=== PATIENT | male | born 1945 | race Asian ===

== ENCOUNTER 2017-09-18 08:45 | Inpatient (IN) | payer MEDICARE, MEDICAID ==
[~2017-09-18] VITALS: Ht 165.1 cm; Wt 74.2 kg
[~2017-09-18 08:45] MED LIST: ASPI81 PO; ATOR20TA65 PO; CARV6 PO; DOCU250C14 PO; FOLI1CAP2 PO; GLIP5 PO; PANT40TA25 PO; SENN-187 PO; TAMS-1 PO; VITAD1000 PO
[2017-09-18] MEDS ORDERED: DEXTROSE 50%-WATER 25 GM/50 ML SYRINGE IVP ONE ×2 (08:52→09:15)
[2017-09-18 09:14] LABS: BASOPHILS # (AUTO) 0.04 K/uL (0.00-0.20); BASOPHILS % (AUTO) 0.3 % (0.0-2.0); EOSINOPHILS # (AUTO) 0.08 K/uL (0.00-0.70); EOSINOPHILS % (AUTO) 0.69 % (1.0-6.0); HEMATOCRIT 40.9 % (41-53); HEMOGLOBIN 13.5 g/dL (13.5-17.5); LYMPHOCYTES # (AUTO) 0.8 K/uL (1.0-4.8); LYMPHOCYTES % (AUTO) 7.5 % (22.0-44.0); MEAN CORPUSCULAR HGB CONC 32.9 G/dL (31.0-37.0); MEAN CORPUSCULAR VOLUME 97 fL (80-100); MONOCYTES # (AUTO) 0.6 K/uL (0.1-1.0); MONOCYTES % (AUTO) 4.9 % (2.0-9.0); NEUTROPHILS # (AUTO) 9.6 K/uL (1.8-7.7); NEUTROPHILS % (AUTO) 86.6 % (40.0-70.0); PLATELET COUNT (AUTO) 222 K/uL (150-450); RED CELL DISTRIBUTION WIDTH 13.2 % (11.5-14.5); WHITE BLOOD COUNT (AUTO) 11.1 K/uL (4.5-11.0)
[2017-09-18 09:26] LABS: ANION GAP 10 mmol/L (8-16); CALCIUM, TOTAL 9.2 mg/dL (8.8-10.5); CARBON DIOXIDE 27 mmol/L (22-29); CHLORIDE 105 mmol/L (98-107); CREATININE 1.61 mg/dL (0.60-1.30); GLOMERULAR FILTR. RATE CALC 43 mL/min (>60); POTASSIUM 4.5 mmol/L (3.5-5.1); SODIUM SERUM 142 mmol/L (136-145); UREA NITROGEN, BLOOD 28 mg/dL (7-18)
[2017-09-18 09:27] LABS: GLUCOSE,POINT OF CARE 177 MG/DL (70-110)
[2017-09-18] MEDS ORDERED: SODIUM CHLORIDE 0.9% 1,000 ML IV ONE (09:30)
[2017-09-18 09:32] LABS: ALANINE AMINOTRANSFERASE 36 U/L (12-78); ALBUMIN 4.5 g/dL (3.4-5.0); ASPARTATE AMINOTRANSFERASE 26 U/L (15-37); BILIRUBIN,TOTAL 0.3 mg/dL (0.1-1.0)
[2017-09-18] MEDS ORDERED: MAGNESIUM HYDROXIDE SUSPENSION 30 ML UDCUP PO PRN (10:15)
[2017-09-18] MEDS ORDERED: DEXTROSE 5%-0.45% SODIUM CHL 1,000 ML IV ONE (10:15)
[2017-09-18] MEDS ORDERED: ACETAMINOPHEN 325 MG TABLET PO PRN ×2 (10:15→10:30)
[2017-09-18] MEDS ORDERED: DEXTROSE 50%-WATER 25 GM/50 ML SYRINGE IVP PRN (10:15)
[2017-09-18] MEDS ORDERED: ONDANSETRON HCL 4 MG/2 ML VIAL IVP PRN (10:30)
[2017-09-18] MEDS ORDERED: 0.9% SODIUM CHLORIDE 10 ML SYRINGE IVP PRN (10:30)
[2017-09-18 10:32] LABS: GLUCOSE,POINT OF CARE 168 MG/DL (70-110)
[2017-09-18 11:47] VITALS: BP 149/89
[2017-09-18 14:52] LABS: GLUCOSE,POINT OF CARE 144 MG/DL (70-110)
[2017-09-18 15:54] VITALS: BP 153/85
[2017-09-18] MEDS: HEPARIN SODIUM,PORCINE 5,000 UNITS/ML VIAL SQ SCH (16:41)
[2017-09-18 17:42] LABS: GLUCOSE,POINT OF CARE 101 MG/DL (70-110)
[2017-09-18 19:46] VITALS: BP 148/81
[2017-09-18] MEDS: CARVEDILOL 6.25 MG TABLET PO SCH (20:41)
[2017-09-18] MEDS: DOCUSATE SODIUM 100 MG CAPSULE PO SCH (20:41)
[2017-09-18] MEDS: INSULIN ASPART 100 UNITS/ML SQ PRN (21:32)
[2017-09-18 22:37] LABS: GLUCOSE COMMENT 1 Juice/Food/D50 Given; GLUCOSE,POINT OF CARE 277 MG/DL (70-110)
[2017-09-19] MEDS: HEPARIN SODIUM,PORCINE 5,000 UNITS/ML VIAL SQ SCH ×4 (00:02→23:27)
[2017-09-19 00:12] VITALS: BP 132/84
[2017-09-19 04:57] VITALS: BP 155/85
[2017-09-19] MEDS: INSULIN ASPART 100 UNITS/ML SQ PRN ×4 (05:21→20:51)
[2017-09-19 05:48] LABS: GLUCOSE COMMENT 1 Juice/Food/D50 Given; GLUCOSE,POINT OF CARE 231 MG/DL (70-110)
[2017-09-19 07:42] VITALS: BP 158/96
[2017-09-19] MEDS: DOCUSATE SODIUM 100 MG CAPSULE PO SCH ×2 (08:22→20:12)
[2017-09-19] MEDS: PANTOPRAZOLE SODIUM 40 MG DR TABLET PO SCH (08:23)
[2017-09-19] MEDS: CARVEDILOL 6.25 MG TABLET PO SCH ×2 (08:23→20:12)
[2017-09-19] MEDS ORDERED: IRBE75TA10 PO (09:07)
[2017-09-19] MEDS ORDERED: METF10002 PO (09:07)
[2017-09-19] MEDS ORDERED: GlipiZIDE 5 MG TABLET PO SCH (10:45)
[2017-09-19 11:42] VITALS: BP 128/76
[2017-09-19 12:17] LABS: GLUCOSE COMMENT 1 Received Meds; GLUCOSE,POINT OF CARE 221 MG/DL (70-110)
[2017-09-19 16:04] LABS: APPEARANCE,URINE CLEAR (CLEAR); GLUCOSE, URINE (UA) >=1000 mg/dL (NEGATIVE); KETONES,URINE NEGATIVE (NEGATIVE); LEUKOCYTE ESTERASE ,URINE NEGATIVE (NEGATIVE); OCCULT BLOOD,URINE NEGATIVE (NEGATIVE); PROTEIN,URINE NEGATIVE (NEGATIVE)
[2017-09-19 16:06] LABS: ADD UA MICROSCOPIC YES
[2017-09-19 16:14] LABS: SQUAMOUS EPITHELIAL CELL,UR Rare /LPF (None Seen)
[2017-09-19 16:16] LABS: RBC,URINE 0-2 /HPF (0-2); WBC,URINE 0-2 /HPF (0-5)
[2017-09-19 16:27] VITALS: BP 135/82
[2017-09-19 18:38] LABS: GLUCOSE,POINT OF CARE 234 MG/DL (70-110)
[2017-09-19 19:30] VITALS: BP 139/78
[2017-09-20 00:15] VITALS: BP 124/76
[2017-09-20 04:25] VITALS: BP 137/69
[2017-09-20 05:23] LABS: GLUCOSE COMMENT 1 Received Meds; GLUCOSE,POINT OF CARE 184 MG/DL (70-110)
[2017-09-20 05:57] LABS: BASOPHILS % (AUTO) 0.2 % (0.0-2.0); EOSINOPHILS % (AUTO) 3.2 % (1.0-6.0); HEMATOCRIT 35.4 % (41-53); HEMOGLOBIN 11.9 g/dL (13.5-17.5); LYMPHOCYTES % (AUTO) 14.1 % (22.0-44.0); MEAN CORPUSCULAR HEMOGLOBIN 32.9 pg (26.0-34.0); MEAN CORPUSCULAR HGB CONC 33.6 G/dL (31.0-37.0); MEAN CORPUSCULAR VOLUME 98 fL (80-100); MONOCYTES # (AUTO) 0.5 K/uL (0.1-1.0); MONOCYTES % (AUTO) 6.5 % (2.0-9.0); NEUTROPHILS # (AUTO) 5.6 K/uL (1.8-7.7); PLATELET COUNT (AUTO) 222 K/uL (150-450); RED BLOOD CELL COUNT(AUTO) 3.62 MIL/uL (4.50-5.90); RED CELL DISTRIBUTION WIDTH 13.2 % (11.5-14.5); WHITE BLOOD COUNT (AUTO) 7.4 K/uL (4.5-11.0)
[2017-09-20] MEDS: INSULIN ASPART 100 UNITS/ML SQ PRN ×2 (06:11→11:48)
[2017-09-20 06:15] LABS: CREATININE 1.77 mg/dL (0.60-1.30)
[2017-09-20 06:16] LABS: CALCIUM, TOTAL 8.5 mg/dL (8.8-10.5)
[2017-09-20 06:36] LABS: HEMOGLOBIN A1C 7.2 % (4.5-6.2)
[2017-09-20 07:48] VITALS: BP 111/76
[2017-09-20] MEDS: HEPARIN SODIUM,PORCINE 5,000 UNITS/ML VIAL SQ SCH (08:00)
[2017-09-20] MEDS: CARVEDILOL 6.25 MG TABLET PO SCH (09:00)
[2017-09-20] MEDS: DOCUSATE SODIUM 100 MG CAPSULE PO SCH (09:00)
[2017-09-20] MEDS: PANTOPRAZOLE SODIUM 40 MG DR TABLET PO SCH (09:00)
[2017-09-20] MEDS ORDERED: GLIP2.5ER PO (10:01)
[2017-09-20 11:40] VITALS: BP 123/82
[2017-09-20 12:48] LABS: GLUCOSE COMMENT 1 Received Meds; GLUCOSE,POINT OF CARE 218 MG/DL (70-110)
[2017-09-20] MEDS ORDERED: INFLUENZA VIRUS VACCINE QVS 2017-18 (3YR+)/PF 60 MCG/0.5 ML SYRINGE IM ONE (13:15)
[2017-09-20 20:03] LABS: GLUCOSE COMMENT 1 Received Meds; GLUCOSE,POINT OF CARE 326 MG/DL (70-110)
== END 2017-09-20 15:10 | disposition home or self-care (01) | DRG 639 ==
LOC: EMS 08:47 → 6N 10:11
PROVIDERS: ADMIT Internal Medicine; ATTEND Internal Medicine
DX: E11.65 Type 2 diabetes mellitus with hyperglycemia (principal); E11.649 Type 2 diabetes mellitus with hypoglycemia without coma; E11.22 Type 2 diabetes mellitus with diabetic chronic kidney disease; I12.9 Hypertensive chronic kidney disease with stage 1 through stage 4 chronic kidney disease, or unspecified chronic kidney disease; N18.3 Chronic kidney disease, stage 3 (moderate); F79 Unspecified intellectual disabilities; Z79.899 Other long term (current) drug therapy; Z79.82 Long term (current) use of aspirin; Z83.49 Family history of other endocrine, nutritional and metabolic diseases; Z82.49 Family history of ischemic heart disease and other diseases of the circulatory system; Z82.3 Family history of stroke; Z83.3 Family history of diabetes mellitus; Z82.5 Family history of asthma and other chronic lower respiratory diseases; Z83.6 Family history of other diseases of the respiratory system; Z81.0 Family history of intellectual disabilities; Z84.89 Family history of other specified conditions; Z80.3 Family history of malignant neoplasm of breast
CPT/HCPCS: 82948; 82962; 83036; 90471; 96361; 96374; 99285; G0480; J1644; J7030

== ENCOUNTER 2017-11-16 17:23 | Inpatient (IN) | payer MEDICARE, MEDICAID ==
[~2017-11-16] VITALS: Ht 165.1 cm; Wt 66.7 kg
[~2017-11-16 17:23] MED LIST changes: +GLIP2.5ER PO; -GLIP5 PO
[2017-11-16] MEDS ORDERED: IRBE150T51 PO (17:28)
[2017-11-16] MEDS ORDERED: FOLI0.8T22 PO (17:28)
[2017-11-16] MEDS ORDERED: SODIUM CHLORIDE 0.9% 1,000 ML IV ONE (17:30)
[2017-11-16] MEDS ORDERED: IPRATROPIUM BROMIDE 0.5 MG/2.5 ML NEB SOLUTION NEB ONE ×2 (17:30→17:45)
[2017-11-16] MEDS ORDERED: MethylPREDNISolone SOD SUCC 125 MG/2 ML VIAL IVP ONE (17:30)
[2017-11-16] MEDS ORDERED: 0.9% SODIUM CHLORIDE 10 ML SYRINGE IVP PRN ×2 (17:30→19:45)
[2017-11-16] MEDS ORDERED: ACETAMINOPHEN 650 MG/ISO-OSM 65 ML IV ONE (17:30)
[2017-11-16] MEDS ORDERED: ALBUTEROL SULFATE 5 MG/ML 20 ML NEB SOLN [BULK] NEB ONE (17:30)
[2017-11-16] MEDS ORDERED: GLIP5 PO (17:35)
[2017-11-16] MEDS ORDERED: LEVALBUTEROL HCL 1.25 MG/0.5 ML NEB SOLUTION NEB ONE (17:36)
[2017-11-16 17:38] LABS: GLUCOSE,POINT OF CARE 192 MG/DL (70-110)
[2017-11-16] MEDS ORDERED: 0.9% SODIUM CHLORIDE 15 ML NEB SOLUTION NEB ONE (17:39)
[2017-11-16 17:49] LABS: BASOPHILS % (AUTO) 0.1 % (0.0-2.0); EOSINOPHILS % (AUTO) 0.9 % (1.0-6.0); HEMOGLOBIN 12.1 g/dL (13.5-17.5); LYMPHOCYTES # (AUTO) 1.1 K/uL (1.0-4.8); LYMPHOCYTES % (AUTO) 7.1 % (22.0-44.0); MEAN CORPUSCULAR HEMOGLOBIN 32.2 pg (26.0-34.0); MEAN CORPUSCULAR HGB CONC 33.6 G/dL (31.0-37.0); MEAN CORPUSCULAR VOLUME 96 fL (80-100); MONOCYTES # (AUTO) 0.5 K/uL (0.1-1.0); MONOCYTES % (AUTO) 3.6 % (2.0-9.0); NEUTROPHILS # (AUTO) 13.2 K/uL (1.8-7.7); NEUTROPHILS % (AUTO) 88.3 % (40.0-70.0); PLATELET COUNT (AUTO) 244 K/uL (150-450); RED BLOOD CELL COUNT(AUTO) 3.76 MIL/uL (4.50-5.90); RED CELL DISTRIBUTION WIDTH 12.9 % (11.5-14.5); WHITE BLOOD COUNT (AUTO) 14.9 K/uL (4.5-11.0)
[2017-11-16 18:18] LABS: ADD UA MICROSCOPIC YES; APPEARANCE,URINE CLEAR (CLEAR); GLUCOSE, URINE (UA) 250 mg/dL (NEGATIVE); KETONES,URINE NEGATIVE (NEGATIVE); LEUKOCYTE ESTERASE ,URINE NEGATIVE (NEGATIVE); OCCULT BLOOD,URINE TRACE (NEGATIVE); PH,URINE 5.5 (5.0-8.0); PROTEIN,URINE SEE CONFIRM (NEGATIVE)
[2017-11-16 18:38] LABS: ANION GAP 5 mmol/L (8-16); CALCIUM, TOTAL 8.3 mg/dL (8.8-10.5); CARBON DIOXIDE 31 mmol/L (22-29); CHLORIDE 102 mmol/L (98-107); CREATININE 1.71 mg/dL (0.60-1.30); GLOMERULAR FILTR. RATE CALC 40 mL/min (>60); POTASSIUM 5.1 mmol/L (3.5-5.1); SODIUM SERUM 138 mmol/L (136-145); UREA NITROGEN, BLOOD 25 mg/dL (7-18)
[2017-11-16 18:41] LABS: INFLUENZA TYPE B NEGATIVE FOR TYPE B (NEGATIVE)
[2017-11-16 18:41] LABS: SQUAMOUS EPITHELIAL CELL,UR Rare /LPF (None Seen); SULFOSALICYLIC ACID,URINE 2+ (Negative)
[2017-11-16 18:43] LABS: LACTIC ACID 1.3 mmol/L (0.4-2.0)
[2017-11-16 19:04] LABS: ALANINE AMINOTRANSFERASE 27 U/L (12-78); ALBUMIN 3.9 g/dL (3.4-5.0); ASPARTATE AMINOTRANSFERASE 26 U/L (15-37); BILIRUBIN,TOTAL 0.3 mg/dL (0.1-1.0); CREATINE KINASE MB 1.9 ng/mL (0-5); CREATINE KINASE, TOTAL 100 U/L (39-308); TOTAL PROTEIN, SERUM 6.9 g/dL (6.4-8.2)
[2017-11-16 19:16] LABS: PROCALCITONIN (PCT) 0.05 ng/mL (<0.50)
[2017-11-16] MEDS ORDERED: OSELTAMIVIR PHOSPHATE 75 MG CAPSULE PO ONE (19:30)
[2017-11-16] MEDS ORDERED: PIPERACILLIN/TAZO 3.375 GM/D5W 50 ML IV ONE (19:30)
[2017-11-16] MEDS ORDERED: ACETAMINOPHEN 325 MG TABLET PO PRN ×2 (19:45→22:00)
[2017-11-16] MEDS ORDERED: ONDANSETRON HCL 4 MG/2 ML VIAL IVP PRN ×2 (19:45→22:00)
[2017-11-16] MEDS ORDERED: IPRATROPIUM BROMIDE 0.5 MG/2.5 ML NEB SOLUTION NEB SCH (20:00)
[2017-11-16] MEDS ORDERED: ALBUTEROL SULFATE 2.5 MG/0.5 ML NEB SOLUTION NEB SCH (20:00)
[2017-11-16 20:25] LABS: ABG A-A DIFF O2 61.6 mmHg (10-20.0); ABG BASE EXCESS -1.6 mmol/L (-2.0-3.0); ABG HCO3 22.4 mmol/L (22.0-26.0); ABG OXYHEMOGLOBIN 88.6 % (94.0-100.0); ABG PCO2 62 mmHg (35-45); ALLEN TEST, BLOOD GAS POS; TEMPERATURE, FAHRENHEIT, BG 99.9 FAHREN (96.0-98.6)
[2017-11-16] MEDS ORDERED: ENOXAPARIN SODIUM 80 MG/0.8 ML PF SYRINGE SQ SCH (20:30)
[2017-11-16 21:28] VITALS: BP 115/77
[2017-11-16] MEDS ORDERED: ALBUTEROL SULFATE 2.5 MG/0.5 ML NEB SOLUTION NEB PRN (22:00)
[2017-11-16] MEDS ORDERED: MORPHINE SULFATE 2 MG/ML SYRINGE IVP PRN (22:00)
[2017-11-16] MEDS ORDERED: BISACODYL 10 MG RECTAL RECTAL SUPPOSITORY PR PRN (22:00)
[2017-11-16] MEDS ORDERED: ZOLPIDEM TARTRATE 5 MG TABLET PO PRN (22:00)
[2017-11-16] MEDS ORDERED: IPRATROPIUM BROMIDE 0.5 MG/2.5 ML NEB SOLUTION NEB PRN (22:00)
[2017-11-16] MEDS ORDERED: INSULIN ASPART 100 UNITS/ML SQ PRN (22:00)
[2017-11-16] MEDS ORDERED: OxyCODONE HCL/ACETAMINOPHEN 5-325 MG TABLET PO PRN (22:00)
[2017-11-16] MEDS ORDERED: MAGNESIUM HYDROXIDE SUSPENSION 30 ML UDCUP PO PRN (22:00)
[2017-11-16] MEDS: SODIUM CHLORIDE 0.9% 1,000 ML IV SCH (23:30)
[2017-11-16 23:31] VITALS: BP 112/79
[2017-11-17] VITALS (7 sets, daily range): BP systolic 101–124; BP diastolic 56–79
[2017-11-17 06:43] LABS: EOSINOPHILS % (AUTO) 0 % (1.0-6.0); HEMATOCRIT 30.6 % (41-53); HEMOGLOBIN 10.1 g/dL (13.5-17.5); LYMPHOCYTES # (AUTO) 0.5 K/uL (1.0-4.8); LYMPHOCYTES % (AUTO) 3.3 % (22.0-44.0); MEAN CORPUSCULAR HEMOGLOBIN 32.1 pg (26.0-34.0); MEAN CORPUSCULAR HGB CONC 33.1 G/dL (31.0-37.0); MEAN CORPUSCULAR VOLUME 97 fL (80-100); MONOCYTES # (AUTO) 0.6 K/uL (0.1-1.0); NEUTROPHILS # (AUTO) 13.3 K/uL (1.8-7.7); PLATELET COUNT (AUTO) 191 K/uL (150-450); RED BLOOD CELL COUNT(AUTO) 3.16 MIL/uL (4.50-5.90); RED CELL DISTRIBUTION WIDTH 12.9 % (11.5-14.5); WHITE BLOOD COUNT (AUTO) 14.4 K/uL (4.5-11.0)
[2017-11-17 06:58] LABS: BILIRUBIN,TOTAL 0.2 mg/dL (0.1-1.0); CALCIUM, TOTAL 7.9 mg/dL (8.8-10.5); CREATININE 1.94 mg/dL (0.60-1.30); TOTAL PROTEIN, SERUM 6.4 g/dL (6.4-8.2)
[2017-11-17] MEDS: GlipiZIDE 5 MG TABLET PO SCH (07:01)
[2017-11-17 07:21] LABS: NEUTROPHILS % (AUTO) 92.7 % (40.0-70.0)
[2017-11-17] MEDS: CHOLECALCIFEROL (VIT D3) 2,000 UNITS TABLET PO SCH (08:13)
[2017-11-17] MEDS: DOCUSATE SODIUM 250 MG CAPSULE PO SCH ×2 (08:13→20:20)
[2017-11-17] MEDS: PANTOPRAZOLE SODIUM 40 MG DR TABLET PO SCH (08:13)
[2017-11-17] MEDS: IRBESARTAN 150 MG TABLET PO SCH (08:14)
[2017-11-17] MEDS: ASPIRIN 81 MG CHEWABLE TABLET PO SCH (08:14)
[2017-11-17] MEDS: CARVEDILOL 6.25 MG TABLET PO SCH ×2 (08:14→20:20)
[2017-11-17] MEDS: SODIUM CHLORIDE 0.9% 1,000 ML IV SCH ×2 (09:23→17:32)
[2017-11-17] MEDS ORDERED: PENTETATE DTPA TC99M/MCL ISOTOPE 1 EA INJ INJ ONE (10:05)
[2017-11-17] MEDS ORDERED: MAA ALBUMIN AGGREGATED TC99M/UD<10MCL ISOTOPE 1 EA INJ INJ ONE (10:25)
[2017-11-17] MEDS: DEXTROSE 50%-WATER 25 GM/50 ML SYRINGE IVP PRN ×2 (11:44→17:10)
[2017-11-17] MEDS ORDERED: *CLINICAL-LEVOFLOXACIN ORAL DOSING CLINICAL ONE (12:15)
[2017-11-17] MEDS ORDERED: LEVOFLOXACIN 750 MG/D5% WATER 150 ML IV ONE (13:00)
[2017-11-17] MEDS: MethylPREDNISolone SOD SUCC 40 MG/ML VIAL IVP SCH ×2 (16:01→23:11)
[2017-11-17] MEDS: BUDESONIDE/FORMOTEROL FUMARATE 160-4.5 MCG/PUFF 6.9 GM INHALER IH SCH (16:01)
[2017-11-17 18:08] LABS: GLUCOSE COMMENT 1 Received Meds; GLUCOSE,POINT OF CARE 47 MG/DL (70-110)
[2017-11-17 18:08] LABS: GLUCOSE,POINT OF CARE 165 MG/DL (70-110)
[2017-11-17] MEDS: ATORVASTATIN CALCIUM 20 MG TABLET PO SCH (20:20)
[2017-11-17] MEDS: GuaiFENesin SR 600 MG ER TABLET PO SCH (20:20)
[2017-11-17] MEDS: TAMSULOSIN HCL 0.4 MG CAPSULE PO SCH (20:20)
[2017-11-17 21:48] LABS: GLUCOSE COMMENT 1 Received Meds; GLUCOSE,POINT OF CARE 258 MG/DL (70-110)
[2017-11-17 21:48] LABS: GLUCOSE,POINT OF CARE 120 MG/DL (70-110)
[2017-11-17 21:48] LABS: GLUCOSE,POINT OF CARE 139 MG/DL (70-110)
[2017-11-17 21:48] LABS: GLUCOSE,POINT OF CARE 58 MG/DL (70-110)
[2017-11-18] MEDS: SODIUM CHLORIDE 0.9% 1,000 ML IV SCH ×3 (02:58→23:32)
[2017-11-18 05:12] VITALS: BP 145/90
[2017-11-18] MEDS: GlipiZIDE 5 MG TABLET PO SCH (06:03)
[2017-11-18 06:19] LABS: EOSINOPHILS % (AUTO) 0 % (1.0-6.0); HEMATOCRIT 31.8 % (41-53); HEMOGLOBIN 10.4 g/dL (13.5-17.5); LYMPHOCYTES # (AUTO) 0.3 K/uL (1.0-4.8); LYMPHOCYTES % (AUTO) 2.1 % (22.0-44.0); MEAN CORPUSCULAR HEMOGLOBIN 32.1 pg (26.0-34.0); MEAN CORPUSCULAR HGB CONC 32.9 G/dL (31.0-37.0); MEAN CORPUSCULAR VOLUME 98 fL (80-100); MONOCYTES # (AUTO) 0.1 K/uL (0.1-1.0); NEUTROPHILS # (AUTO) 12.2 K/uL (1.8-7.7); PLATELET COUNT (AUTO) 194 K/uL (150-450); RED BLOOD CELL COUNT(AUTO) 3.25 MIL/uL (4.50-5.90); RED CELL DISTRIBUTION WIDTH 12.8 % (11.5-14.5); WHITE BLOOD COUNT (AUTO) 12.6 K/uL (4.5-11.0)
[2017-11-18 06:46] LABS: NEUTROPHILS % (AUTO) 96.9 % (40.0-70.0)
[2017-11-18 06:47] LABS: CALCIUM, TOTAL 8.2 mg/dL (8.8-10.5); CREATININE 1.79 mg/dL (0.60-1.30); POTASSIUM 5.1 mmol/L (3.5-5.1)
[2017-11-18 07:33] VITALS: BP 141/94
[2017-11-18 07:33] LABS: GLUCOSE,POINT OF CARE 316 MG/DL (70-110)
[2017-11-18] MEDS: MethylPREDNISolone SOD SUCC 40 MG/ML VIAL IVP SCH (08:35)
[2017-11-18] MEDS: DOCUSATE SODIUM 250 MG CAPSULE PO SCH ×2 (08:36→20:39)
[2017-11-18] MEDS: CARVEDILOL 6.25 MG TABLET PO SCH ×2 (08:36→20:39)
[2017-11-18] MEDS: PANTOPRAZOLE SODIUM 40 MG DR TABLET PO SCH (08:36)
[2017-11-18] MEDS: ASPIRIN 81 MG CHEWABLE TABLET PO SCH (08:36)
[2017-11-18] MEDS: GuaiFENesin SR 600 MG ER TABLET PO SCH ×2 (08:37→20:39)
[2017-11-18] MEDS: IRBESARTAN 150 MG TABLET PO SCH (08:37)
[2017-11-18] MEDS: BUDESONIDE/FORMOTEROL FUMARATE 160-4.5 MCG/PUFF 6.9 GM INHALER IH SCH ×2 (08:37→20:40)
[2017-11-18] MEDS: CHOLECALCIFEROL (VIT D3) 2,000 UNITS TABLET PO SCH (08:37)
[2017-11-18 11:06] VITALS: BP 152/92
[2017-11-18] MEDS: PredniSONE 20 MG TABLET PO SCH (12:02)
[2017-11-18 15:05] VITALS: BP 158/98
[2017-11-18] MEDS ORDERED: INSULIN ASPART 100 UNITS/ML SQ ONE (18:15)
[2017-11-18 19:18] VITALS: BP 150/86
[2017-11-18] MEDS ORDERED: DEXTROSE 50%-WATER 25 GM/50 ML SYRINGE IVP PRN (20:30)
[2017-11-18] MEDS: ATORVASTATIN CALCIUM 20 MG TABLET PO SCH (20:39)
[2017-11-18] MEDS: TAMSULOSIN HCL 0.4 MG CAPSULE PO SCH (20:39)
[2017-11-18] MEDS: INSULIN ASPART 100 UNITS/ML SQ PRN (20:42)
[2017-11-18 23:49] VITALS: BP 128/78
[2017-11-19 05:04] VITALS: BP 120/78
[2017-11-19 05:28] LABS: GLUCOSE COMMENT 1 Doctor Notified; GLUCOSE,POINT OF CARE 416 MG/DL (70-110)
[2017-11-19] MEDS: GlipiZIDE 5 MG TABLET PO SCH ×2 (05:57→18:17)
[2017-11-19] MEDS: INSULIN ASPART 100 UNITS/ML SQ PRN ×2 (05:57→22:23)
[2017-11-19 07:28] VITALS: BP 134/83
[2017-11-19 07:37] LABS: BASOPHILS % (AUTO) 0.1 % (0.0-2.0); EOSINOPHILS % (AUTO) 0.1 % (1.0-6.0); HEMATOCRIT 31.7 % (41-53); HEMOGLOBIN 10.7 g/dL (13.5-17.5); LYMPHOCYTES # (AUTO) 0.8 K/uL (1.0-4.8); LYMPHOCYTES % (AUTO) 6.6 % (22.0-44.0); MEAN CORPUSCULAR HEMOGLOBIN 32.7 pg (26.0-34.0); MEAN CORPUSCULAR HGB CONC 33.8 G/dL (31.0-37.0); MEAN CORPUSCULAR VOLUME 97 fL (80-100); MONOCYTES # (AUTO) 0.6 K/uL (0.1-1.0); MONOCYTES % (AUTO) 4.5 % (2.0-9.0); NEUTROPHILS # (AUTO) 11.1 K/uL (1.8-7.7); PLATELET COUNT (AUTO) 199 K/uL (150-450); RED BLOOD CELL COUNT(AUTO) 3.27 MIL/uL (4.50-5.90); RED CELL DISTRIBUTION WIDTH 13.1 % (11.5-14.5); WHITE BLOOD COUNT (AUTO) 12.5 K/uL (4.5-11.0)
[2017-11-19 07:41] LABS: NEUTROPHILS % (AUTO) 88.7 % (40.0-70.0)
[2017-11-19 08:01] LABS: HEMOGLOBIN A1C 8.1 % (4.5-6.2)
[2017-11-19 08:09] LABS: CALCIUM, TOTAL 8.4 mg/dL (8.8-10.5); CREATININE 1.94 mg/dL (0.60-1.30); POTASSIUM 4.7 mmol/L (3.5-5.1)
[2017-11-19] MEDS: PANTOPRAZOLE SODIUM 40 MG DR TABLET PO SCH (08:46)
[2017-11-19] MEDS: GuaiFENesin SR 600 MG ER TABLET PO SCH ×2 (08:46→20:38)
[2017-11-19] MEDS: PredniSONE 20 MG TABLET PO SCH (08:46)
[2017-11-19] MEDS: CHOLECALCIFEROL (VIT D3) 2,000 UNITS TABLET PO SCH (08:46)
[2017-11-19] MEDS: ASPIRIN 81 MG CHEWABLE TABLET PO SCH (08:46)
[2017-11-19] MEDS: IRBESARTAN 150 MG TABLET PO SCH (08:47)
[2017-11-19] MEDS: CARVEDILOL 6.25 MG TABLET PO SCH ×2 (08:47→20:38)
[2017-11-19] MEDS: DOCUSATE SODIUM 250 MG CAPSULE PO SCH ×2 (08:47→20:38)
[2017-11-19] MEDS: BUDESONIDE/FORMOTEROL FUMARATE 160-4.5 MCG/PUFF 6.9 GM INHALER IH SCH ×2 (08:53→20:38)
[2017-11-19] MEDS: SODIUM CHLORIDE 0.9% 1,000 ML IV SCH ×2 (08:59→23:08)
[2017-11-19 11:30] LABS: ABG A-A DIFF O2 26.4 mmHg (10-20.0); ABG BASE EXCESS 1.8 mmol/L (-2.0-3.0); ABG HCO3 25.3 mmol/L (22.0-26.0); ABG OXYHEMOGLOBIN 90.2 % (94.0-100.0); ABG PCO2 54 mmHg (35-45); ABG PH 7.328 (7.35-7.450); TEMPERATURE, FAHRENHEIT, BG 98.1 FAHREN (96.0-98.6)
[2017-11-19 11:31] VITALS: BP 141/86
[2017-11-19 11:31] LABS: ALLEN TEST, BLOOD GAS Positive
[2017-11-19 11:59] LABS: GLUCOSE COMMENT 1 Doctor Notified; GLUCOSE COMMENT 2 Received Meds; GLUCOSE,POINT OF CARE 465 MG/DL (70-110)
[2017-11-19 11:59] LABS: GLUCOSE COMMENT 1 Received Meds; GLUCOSE,POINT OF CARE 155 MG/DL (70-110)
[2017-11-19 12:27] LABS: GLUCOSE,POINT OF CARE 274 MG/DL (70-110)
[2017-11-19] MEDS ORDERED: DEXTROSE 50%-WATER 25 GM/50 ML SYRINGE IVP PRN (13:45)
[2017-11-19 15:08] VITALS: BP 132/80
[2017-11-19] MEDS: LEVOFLOXACIN 750 MG/D5% WATER 150 ML IV SCH (15:08)
[2017-11-19 19:30] VITALS: BP 128/72
[2017-11-19 19:47] LABS: GLUCOSE,POINT OF CARE 332 MG/DL (70-110)
[2017-11-19 19:47] LABS: GLUCOSE,POINT OF CARE 82 MG/DL (70-110)
[2017-11-19 19:47] LABS: GLUCOSE COMMENT 1 Received Meds; GLUCOSE,POINT OF CARE 341 MG/DL (70-110)
[2017-11-19 20:16] LABS: APPEARANCE,URINE CLEAR (CLEAR); GLUCOSE, URINE (UA) 500 mg/dL (NEGATIVE); KETONES,URINE NEGATIVE (NEGATIVE); LEUKOCYTE ESTERASE ,URINE NEGATIVE (NEGATIVE); OCCULT BLOOD,URINE LARGE (NEGATIVE); PROTEIN,URINE NEGATIVE (NEGATIVE)
[2017-11-19 20:17] LABS: ADD UA MICROSCOPIC YES
[2017-11-19 20:29] LABS: RBC,URINE 51-100 /HPF (0-2); SQUAMOUS EPITHELIAL CELL,UR Few /LPF (None Seen); WBC,URINE 0-2 /HPF (0-5)
[2017-11-19] MEDS: ATORVASTATIN CALCIUM 20 MG TABLET PO SCH (20:38)
[2017-11-19] MEDS: TAMSULOSIN HCL 0.4 MG CAPSULE PO SCH (20:38)
[2017-11-19 20:42] LABS: GLUCOSE,POINT OF CARE 323 MG/DL (70-110)
[2017-11-19 20:42] LABS: GLUCOSE,POINT OF CARE 304 MG/DL (70-110)
[2017-11-19 23:31] VITALS: BP 119/74
[2017-11-20 04:54] VITALS: BP 143/94
[2017-11-20] MEDS: GlipiZIDE 5 MG TABLET PO SCH ×2 (06:30→19:35)
[2017-11-20 06:31] LABS: BASOPHILS % (AUTO) 0.3 % (0.0-2.0); EOSINOPHILS % (AUTO) 0.7 % (1.0-6.0); HEMATOCRIT 33.7 % (41-53); HEMOGLOBIN 11.1 g/dL (13.5-17.5); LYMPHOCYTES # (AUTO) 0.9 K/uL (1.0-4.8); LYMPHOCYTES % (AUTO) 9.6 % (22.0-44.0); MEAN CORPUSCULAR HEMOGLOBIN 32.3 pg (26.0-34.0); MEAN CORPUSCULAR HGB CONC 32.9 G/dL (31.0-37.0); MEAN CORPUSCULAR VOLUME 98 fL (80-100); MONOCYTES # (AUTO) 0.6 K/uL (0.1-1.0); MONOCYTES % (AUTO) 6.3 % (2.0-9.0); NEUTROPHILS # (AUTO) 7.7 K/uL (1.8-7.7); NEUTROPHILS % (AUTO) 83.1 % (40.0-70.0); PLATELET COUNT (AUTO) 216 K/uL (150-450); RED BLOOD CELL COUNT(AUTO) 3.43 MIL/uL (4.50-5.90); WHITE BLOOD COUNT (AUTO) 9.3 K/uL (4.5-11.0)
[2017-11-20 06:52] LABS: CALCIUM, TOTAL 8.5 mg/dL (8.8-10.5); CREATININE 1.69 mg/dL (0.60-1.30); POTASSIUM 4.9 mmol/L (3.5-5.1)
[2017-11-20 07:55] VITALS: BP 138/86
[2017-11-20] MEDS: DOCUSATE SODIUM 250 MG CAPSULE PO SCH ×2 (08:38→21:52)
[2017-11-20] MEDS: ASPIRIN 81 MG CHEWABLE TABLET PO SCH (08:38)
[2017-11-20] MEDS: CHOLECALCIFEROL (VIT D3) 2,000 UNITS TABLET PO SCH (08:38)
[2017-11-20] MEDS: GuaiFENesin SR 600 MG ER TABLET PO SCH ×2 (08:38→21:52)
[2017-11-20] MEDS: CARVEDILOL 6.25 MG TABLET PO SCH ×2 (08:38→21:52)
[2017-11-20] MEDS: PredniSONE 20 MG TABLET PO SCH (08:38)
[2017-11-20] MEDS: IRBESARTAN 150 MG TABLET PO SCH (08:38)
[2017-11-20] MEDS: BUDESONIDE/FORMOTEROL FUMARATE 160-4.5 MCG/PUFF 6.9 GM INHALER IH SCH ×2 (08:39→21:53)
[2017-11-20] MEDS: PANTOPRAZOLE SODIUM 40 MG DR TABLET PO SCH (08:39)
[2017-11-20 11:37] VITALS: BP 129/92
[2017-11-20 13:53] LABS: GLUCOSE,POINT OF CARE 88 MG/DL (70-110)
[2017-11-20 13:53] LABS: GLUCOSE COMMENT 1 Received Meds; GLUCOSE,POINT OF CARE 221 MG/DL (70-110)
[2017-11-20 15:59] VITALS: BP 141/83
[2017-11-20 19:54] VITALS: BP 135/79
[2017-11-20 20:33] LABS: GLUCOSE COMMENT 1 Received Meds; GLUCOSE,POINT OF CARE 290 MG/DL (70-110)
[2017-11-20] MEDS: INSULIN ASPART 100 UNITS/ML SQ PRN (21:52)
[2017-11-20] MEDS: ATORVASTATIN CALCIUM 20 MG TABLET PO SCH (21:52)
[2017-11-20] MEDS: TAMSULOSIN HCL 0.4 MG CAPSULE PO SCH (21:52)
[2017-11-21 00:03] VITALS: BP 142/79
[2017-11-21] MEDS ORDERED: SODIUM CHLORIDE 0.9% 250 ML IV ONE (00:15)
[2017-11-21] MEDS: GlipiZIDE 5 MG TABLET PO SCH ×2 (06:25→17:13)
[2017-11-21 07:03] LABS: BASOPHILS % (AUTO) 0.2 % (0.0-2.0); EOSINOPHILS % (AUTO) 1.2 % (1.0-6.0); HEMATOCRIT 35.2 % (41-53); HEMOGLOBIN 11.8 g/dL (13.5-17.5); LYMPHOCYTES % (AUTO) 13.8 % (22.0-44.0); MEAN CORPUSCULAR HEMOGLOBIN 32.3 pg (26.0-34.0); MEAN CORPUSCULAR HGB CONC 33.6 G/dL (31.0-37.0); MEAN CORPUSCULAR VOLUME 96 fL (80-100); MONOCYTES # (AUTO) 0.6 K/uL (0.1-1.0); MONOCYTES % (AUTO) 8.7 % (2.0-9.0); NEUTROPHILS # (AUTO) 5.6 K/uL (1.8-7.7); NEUTROPHILS % (AUTO) 76.1 % (40.0-70.0); PLATELET COUNT (AUTO) 237 K/uL (150-450); RED BLOOD CELL COUNT(AUTO) 3.66 MIL/uL (4.50-5.90); RED CELL DISTRIBUTION WIDTH 12.8 % (11.5-14.5); WHITE BLOOD COUNT (AUTO) 7.4 K/uL (4.5-11.0)
[2017-11-21 07:22] LABS: CALCIUM, TOTAL 9.6 mg/dL (8.8-10.5); CREATININE 1.74 mg/dL (0.60-1.30); POTASSIUM 4.8 mmol/L (3.5-5.1)
[2017-11-21 07:27] VITALS: BP 130/81
[2017-11-21] MEDS: PANTOPRAZOLE SODIUM 40 MG DR TABLET PO SCH (08:38)
[2017-11-21] MEDS: PredniSONE 20 MG TABLET PO SCH (08:38)
[2017-11-21] MEDS: CARVEDILOL 6.25 MG TABLET PO SCH ×2 (08:38→20:53)
[2017-11-21] MEDS: DOCUSATE SODIUM 250 MG CAPSULE PO SCH ×2 (08:38→20:53)
[2017-11-21] MEDS: GuaiFENesin SR 600 MG ER TABLET PO SCH ×2 (08:38→20:53)
[2017-11-21] MEDS: ASPIRIN 81 MG CHEWABLE TABLET PO SCH (08:38)
[2017-11-21] MEDS: BUDESONIDE/FORMOTEROL FUMARATE 160-4.5 MCG/PUFF 6.9 GM INHALER IH SCH ×2 (08:39→20:53)
[2017-11-21] MEDS: CHOLECALCIFEROL (VIT D3) 2,000 UNITS TABLET PO SCH (08:39)
[2017-11-21] MEDS: IRBESARTAN 150 MG TABLET PO SCH (08:39)
[2017-11-21 09:00] VITALS: BP 132/84
[2017-11-21] MEDS: LEVOFLOXACIN 750 MG/D5% WATER 150 ML IV SCH (13:27)
[2017-11-21] MEDS: INSULIN ASPART 100 UNITS/ML SQ PRN ×3 (13:28→21:02)
[2017-11-21] MEDS ORDERED: SODIUM CHLORIDE 0.9% 100 ML ONE (13:33)
[2017-11-21 14:57] LABS: GLUCOSE,POINT OF CARE 147 MG/DL (70-110)
[2017-11-21 14:57] LABS: GLUCOSE COMMENT 1 Doctor Notified; GLUCOSE COMMENT 2 Received Meds; GLUCOSE,POINT OF CARE 417 MG/DL (70-110)
[2017-11-21] MEDS ORDERED: DEXTROSE 50%-WATER 25 GM/50 ML SYRINGE IVP PRN (15:00)
[2017-11-21 15:11] VITALS: BP 148/78
[2017-11-21 17:08] LABS: GLUCOSE,POINT OF CARE 458 MG/DL (70-110)
[2017-11-21 17:08] LABS: GLUCOSE,POINT OF CARE 509 MG/DL (70-110)
[2017-11-21 17:08] LABS: GLUCOSE,POINT OF CARE 459 MG/DL (70-110)
[2017-11-21] MEDS ORDERED: GUAIF600 PO (17:43)
[2017-11-21] MEDS ORDERED: GLIP5 PO (17:43)
[2017-11-21] MEDS ORDERED: INSULIN ASPART 100 UNITS/ML SQ ONE (17:45)
[2017-11-21] MEDS ORDERED: LEVO750P3 IV (17:45)
[2017-11-21] MEDS ORDERED: PRED10 PO (17:47)
[2017-11-21] MEDS ORDERED: PRED20 PO (17:47)
[2017-11-21] MEDS ORDERED: TAMS0.4C32 PO (17:48)
[2017-11-21] MEDS ORDERED: ACET650S14 PR (17:49)
[2017-11-21] MEDS ORDERED: AUD NEB (17:50)
[2017-11-21] MEDS ORDERED: BISA5TAB12 PO (17:51)
[2017-11-21] MEDS ORDERED: IPRNEB IH (17:53)
[2017-11-21] MEDS ORDERED: OXYC-530 PO (17:54)
[2017-11-21] MEDS ORDERED: ZOLP5 PO (17:55)
[2017-11-21 19:59] VITALS: BP 115/69
[2017-11-21] MEDS: ATORVASTATIN CALCIUM 20 MG TABLET PO SCH (20:53)
[2017-11-21] MEDS: TAMSULOSIN HCL 0.4 MG CAPSULE PO SCH (20:53)
[2017-11-22 05:28] LABS: GLUCOSE COMMENT 1 Received Meds; GLUCOSE,POINT OF CARE 257 MG/DL (70-110)
[2017-11-22 05:28] LABS: GLUCOSE,POINT OF CARE 400 MG/DL (70-110)
[2017-11-24 08:38] LABS: ALBUMIN (IFE & ELECTROPHOR) 3.3 g/dL (2.9-4.4); ALBUMIN/GLOBULIN RATIO (IFE) 1.2 (0.7-1.7); IGG (IMMUNOFIXATION) 966 mg/dL (700-1600); M-SPIKE (IEP) Not Observed g/dL (Not Observed); TOTAL PROTEIN 6.3 g/dL (6.0-8.5)
[2017-11-24 08:38] LABS: ALPHA-1 URINE (ELP) 5.8 %; BETA URINE(ELP) 28.2 %; GAMMA URINE(ELP) 16.5 %; TOTAL PROTEIN URINE 8.9 mg/dL (Not Estab.)
== END 2017-11-21 22:45 | DRG 871 ==
LOC: EMS 17:32 → 5S 20:01 → 5N 11-20 18:10
PROVIDERS: ADMIT Internal Medicine; ATTEND Internal Medicine
PROC: 5A09357 Assistance with Respiratory Ventilation, Less than 24 Consecutive Hours, Continuous Positive Airway Pressure (ICD-10-PCS; principal; 2017-11-16)
DX: A41.9 Sepsis, unspecified organism (principal); J96.00 Acute respiratory failure, unspecified whether with hypoxia or hypercapnia; N17.9 Acute kidney failure, unspecified; J44.1 Chronic obstructive pulmonary disease with (acute) exacerbation; E11.65 Type 2 diabetes mellitus with hyperglycemia; E11.22 Type 2 diabetes mellitus with diabetic chronic kidney disease; I12.9 Hypertensive chronic kidney disease with stage 1 through stage 4 chronic kidney disease, or unspecified chronic kidney disease; E86.0 Dehydration; R31.9 Hematuria, unspecified; E78.5 Hyperlipidemia, unspecified; N18.9 Chronic kidney disease, unspecified; E55.9 Vitamin D deficiency, unspecified; N40.0 Benign prostatic hyperplasia without lower urinary tract symptoms; K59.00 Constipation, unspecified; K21.9 Gastro-esophageal reflux disease without esophagitis; E78.00 Pure hypercholesterolemia, unspecified; Z79.82 Long term (current) use of aspirin; Z79.899 Other long term (current) drug therapy; Z83.3 Family history of diabetes mellitus; Z87.891 Personal history of nicotine dependence
CPT/HCPCS: 70450; 76770; 78582; 82306; 82570; 82784; 82805; 82962; 83036; 83605; 83970; 84100; 84145; 84155; 84156; 84165; 84166; 84300; 86334; 87040; 87804; 92610; 93005; 94640; 94644; 94660; 96365; 96366; 96368; 96375; 97163; 97166; 97530; 97535; 99285; A9539; A9540; J0131; J1650; J1815; J1956; J2543; J2920; J2930; J7030; J7050

== ENCOUNTER 2017-12-27 08:33 | Inpatient (IN) | payer MEDICARE, MEDICAID ==
[~2017-12-27] VITALS: Ht 165.1 cm; Wt 68.2 kg
[~2017-12-27 08:33] MED LIST changes: +ACET650S14 PR; +AUD NEB; +BISA5TAB12 PO; +FOLI0.8T22 PO; -FOLI1CAP2 PO; -GLIP2.5ER PO; +GLIP5 PO; +GUAIF600 PO; +IPRNEB IH; +IRBE150T51 PO; +LEVO750P3 IV; +OXYC-530 PO; +PRED10 PO; +PRED20 PO; -SENN-187 PO; +ZOLP5 PO
[2017-12-27 09:06] LABS: BASOPHILS # (AUTO) 0.01 K/uL (0.00-0.20); BASOPHILS % (AUTO) 0.1 % (0.0-2.0); EOSINOPHILS # (AUTO) 0.04 K/uL (0.00-0.70); EOSINOPHILS % (AUTO) 0.32 % (1.0-6.0); HEMATOCRIT 32.8 % (41-53); HEMOGLOBIN 10.4 g/dL (13.5-17.5); LYMPHOCYTES # (AUTO) 0.8 K/uL (1.0-4.8); LYMPHOCYTES % (AUTO) 6.8 % (22.0-44.0); MEAN CORPUSCULAR HGB CONC 31.8 G/dL (31.0-37.0); MEAN CORPUSCULAR VOLUME 101 fL (80-100); MONOCYTES # (AUTO) 0.5 K/uL (0.1-1.0); MONOCYTES % (AUTO) 4.3 % (2.0-9.0); NEUTROPHILS # (AUTO) 10.5 K/uL (1.8-7.7); PLATELET COUNT (AUTO) 217 K/uL (150-450); RED BLOOD CELL COUNT(AUTO) 3.26 MIL/uL (4.50-5.90); RED CELL DISTRIBUTION WIDTH 14.7 % (11.5-14.5)
[2017-12-27 09:10] LABS: NEUTROPHILS % (AUTO) 88.5 % (40.0-70.0)
[2017-12-27 09:17] LABS: ANION GAP 0 mmol/L (8-16); CALCIUM, TOTAL 8.1 mg/dL (8.8-10.5); CARBON DIOXIDE 36 mmol/L (22-29); CHLORIDE 101 mmol/L (98-107); GLOMERULAR FILTR. RATE CALC 26 mL/min (>60); GLUCOSE,RANDOM 275 mg/dL (70-110); POTASSIUM 5.7 mmol/L (3.5-5.1); SODIUM SERUM 137 mmol/L (136-145); UREA NITROGEN, BLOOD 35 mg/dL (7-18)
[2017-12-27] MEDS ORDERED: SODIUM CHLORIDE 0.9% 1,000 ML IV ONE ×2 (09:30→10:15)
[2017-12-27 09:31] LABS: B-TYPE NATRIURETIC PEPTIDE 28 pg/mL (0-100)
[2017-12-27] MEDS ORDERED: SODIUM CHLORIDE 0.9% 250 ML IV ONE ×2 (09:32→09:45)
[2017-12-27 09:39] LABS: INR 1.1 (0.9-1.1); PROTHROMBIN TIME 11.1 SEC (9.4-11.6)
[2017-12-27 09:42] LABS: ALANINE AMINOTRANSFERASE 110 U/L (12-78); ALBUMIN 3.3 g/dL (3.4-5.0); ALKALINE PHOSPHATASE 83 U/L (46-116); ASPARTATE AMINOTRANSFERASE 108 U/L (15-37); BILIRUBIN,TOTAL 0.2 mg/dL (0.1-1.0); CREATINE KINASE MB 0.6 ng/mL (0-5); CREATINE KINASE, TOTAL 91 U/L (39-308); TOTAL PROTEIN, SERUM 7.4 g/dL (6.4-8.2)
[2017-12-27 10:50] LABS: BILIRUBIN,URINE NEGATIVE (NEGATIVE); GLUCOSE, URINE (UA) 100 mg/dL (NEGATIVE); KETONES,URINE NEGATIVE (NEGATIVE); LEUKOCYTE ESTERASE ,URINE NEGATIVE (NEGATIVE); NITRATE,URINE NEGATIVE (NEGATIVE); OCCULT BLOOD,URINE NEGATIVE (NEGATIVE); PH,URINE 5.5 (5.0-8.0); PROTEIN,URINE POS 1+ (NEGATIVE); UROBILINOGEN,URINE 0.2 mg/dL (<=1.0)
[2017-12-27 11:02] LABS: APPEARANCE,URINE HAZY (CLEAR)
[2017-12-27 11:03] LABS: AMORPHOUS SEDIMENT,UR Moderate /LPF (None Seen); BACTERIA,URINE None Seen /HPF (None Seen); RBC,URINE None Seen /HPF (0-2); WBC,URINE None Seen /HPF (0-5)
[2017-12-27] MEDS ORDERED: CefTRIAXone SODIUM 1 GM/VIAL IV ONE (12:00)
[2017-12-27] MEDS ORDERED: CefTRIAXone SODIUM 2 GM in DEXTROSE 5%-WATER 20 ML IV ONE (12:15)
[2017-12-27 14:40] VITALS: BP 49/36
[2017-12-27] MEDS ORDERED: ACETAMINOPHEN 325 MG TABLET PO PRN (15:15)
[2017-12-27] MEDS ORDERED: MAGNESIUM HYDROXIDE SUSPENSION 30 ML UDCUP PO PRN (15:15)
[2017-12-27] MEDS ORDERED: ONDANSETRON HCL 4 MG/2 ML VIAL IVP PRN (15:15)
[2017-12-27] MEDS ORDERED: HYDROCODONE/ACETAMINOPHEN 5-325 MG TABLET PO PRN (15:15)
[2017-12-27] MEDS ORDERED: MORPHINE SULFATE 2 MG/ML SYRINGE IVP PRN (15:15)
[2017-12-27] MEDS ORDERED: BISACODYL 10 MG RECTAL RECTAL SUPPOSITORY PR PRN (15:15)
[2017-12-27] MEDS ORDERED: ALBUTEROL SULFATE 2.5 MG/0.5 ML NEB SOLUTION NEB PRN (15:15)
[2017-12-27] MEDS ORDERED: ZOLPIDEM TARTRATE 5 MG TABLET PO PRN (15:15)
[2017-12-27] MEDS ORDERED: FUROSEMIDE 20 MG/2 ML VIAL IVP ONE (15:15)
[2017-12-27] MEDS ORDERED: HEPARIN SODIUM,PORCINE 5,000 UNITS/ML VIAL SQ SCH (16:00)
[2017-12-27] MEDS ORDERED: DOCUSATE SODIUM 100 MG CAPSULE PO SCH (21:00)
[2017-12-27] MEDS ORDERED: ATORVASTATIN CALCIUM 20 MG TABLET PO SCH (21:00)
[2017-12-27] MEDS ORDERED: TAMSULOSIN HCL 0.4 MG CAPSULE PO SCH (21:00)
[2017-12-28] MEDS ORDERED: CHOLECALCIFEROL (VIT D3) 1,000 UNITS TABLET PO SCH (09:00)
[2017-12-28] MEDS ORDERED: PANTOPRAZOLE SODIUM 40 MG DR TABLET PO SCH (09:00)
[2017-12-28] MEDS ORDERED: ASPIRIN 81 MG CHEWABLE TABLET PO SCH (09:00)
[2017-12-28] MEDS ORDERED: CefTRIAXone SODIUM 1 GM in DEXTROSE 5%-WATER 10 ML IV SCH (12:00)
== END 2017-12-27 17:45 | disposition expired | DRG 70 ==
LOC: EMS 08:36 → 6N 15:55
PROVIDERS: ADMIT Internal Medicine; ATTEND Internal Medicine
PROC: 5A09357 Assistance with Respiratory Ventilation, Less than 24 Consecutive Hours, Continuous Positive Airway Pressure (ICD-10-PCS; principal; 2017-12-27)
DX: G93.41 Metabolic encephalopathy (principal); J96.00 Acute respiratory failure, unspecified whether with hypoxia or hypercapnia; N39.0 Urinary tract infection, site not specified; E11.65 Type 2 diabetes mellitus with hyperglycemia; J44.9 Chronic obstructive pulmonary disease, unspecified; R13.10 Dysphagia, unspecified; E86.0 Dehydration; I46.9 Cardiac arrest, cause unspecified; E78.00 Pure hypercholesterolemia, unspecified; E78.5 Hyperlipidemia, unspecified; K21.9 Gastro-esophageal reflux disease without esophagitis; K59.00 Constipation, unspecified; N40.0 Benign prostatic hyperplasia without lower urinary tract symptoms; I10 Essential (primary) hypertension; Z66 Do not resuscitate; Z79.899 Other long term (current) drug therapy; Z83.3 Family history of diabetes mellitus; Z82.49 Family history of ischemic heart disease and other diseases of the circulatory system
CPT/HCPCS: 83605; 87040; 93005; 94660; 96361; 96374; 96375; 99291; J0696; J1644; J1940; J7030; J7050; J7060